=== PATIENT | male | born 1965 | race Caucasian/White ===

== ENCOUNTER 2023-09-23 17:18 | Inpatient (IN) | payer MEDICARE, MEDICAID ==
[~2023-09-23] VITALS: Ht 165.1 cm; Wt 88.4 kg
[2023-09-23] MEDS: normal saline 1000ML IV soln IVB ONE (18:08)
[2023-09-23] MEDS: LORazepam 2 mg/ml vial IV PRN (18:08)
[2023-09-23 21:46] LABS: INR 1.1 INR; PROTHROMBIN TIME 11.4 SECONDS (9.0-12.0)
[2023-09-23 21:49] LABS: ALBUMIN 3.3 G/DL (3.4-5.0); ALBUMIN/GLOBULIN RATIO 0.9 (1.1-1.5); ALKALINE PHOSPHATASE 95 IU/L (46-116); BILIRUBIN,TOTAL 0.8 MG/DL (0.1-1.0); BLOOD UREA NITROGEN 22 MG/DL (7-18); CALCIUM 7.3 MG/DL (8.5-10.1); CHLORIDE 106 MMOL/L (99-107); CREATININE 1.47 MG/DL (0.60-1.10); LIPASE 38 U/L (16-77); MAGNESIUM 1.7 MG/DL (1.5-2.4); TOTAL CARBON DIOXIDE 20.5 MMOL/L (24-32); eCRCL 51 ML/MIN; eGFR 50 ML/MIN
[2023-09-23 21:50] LABS: BASOPHILS # (AUTO) 0.1 X10'3 (0-0.2); BASOPHILS % (AUTO) 1.4 % (0-1); EOSINOPHILS # (AUTO) 0.1 X10'3 (0-0.9); HEMATOCRIT 37.7 % (42.0-52.0); HEMOGLOBIN 12.8 g/dl (14.0-17.9); LYMPHOCYTES # (AUTO) 1.9 X10'3 (1.1-4.8); LYMPHOCYTES % (AUTO) 32.2 % (21-51); MEAN CORPUSCULAR HEMOGLOBIN 29.5 PG (27.0-31.0); MEAN CORPUSCULAR VOLUME 86.8 FL (78-98); MEAN PLATELET VOLUME 6.4 FL (7.4-10.4); MONOCYTES # (AUTO) 0.9 X10'3 (0-0.9); MONOCYTES % (AUTO) 15.6 % (2-12); NEUTROPHILS # (AUTO) 2.9 X10'3 (1.8-7.7); NEUTROPHILS % (AUTO) 49.8 % (42-75); PLATELET COUNT 185 X10'3 (140-440); RED BLOOD COUNT 4.35 X10'6 (4.70-6.10); WHITE BLOOD COUNT 5.8 X10'3 (4.5-11.0)
[2023-09-23 22:48] LABS: ALANINE AMINOTRANSFERASE 60 U/L (12-78); GLUCOSE 90 MG/DL (70-104); PHOSPHORUS 3.6 MG/DL (2.3-4.5)
[2023-09-23 22:49] LABS: TOTAL CELLS COUNTED 100
[2023-09-23 22:50] LABS: PLATELET ESTIMATE NORMAL; TEAR DROP CELLS FEW
[2023-09-23 23:04] LABS: ASPARTATE AMINO TRANSFERASE 49 U/L (10-37)
[2023-09-23 23:24] LABS: ANION GAP 17 (8-16); POTASSIUM 3.9 MMOL/L (3.5-5.1); SODIUM 143 MMOL/L (135-145)
[2023-09-24] VITALS (13 sets, daily range): BP systolic 142–167; BP diastolic 95–116; PULSE 57–126; RESP 12–18; TEMP 97.2–98.8; O2SAT 93–98
[2023-09-24] MEDS ORDERED: glucagon, human recombinant 1mg kit SUBCUT PRN
[2023-09-24] MEDS ORDERED: magnesium 4gm in 100ml NS 100 ML IV PRN
[2023-09-24] MEDS ORDERED: magnesium hydroxide 30ml (MOM) UD suspension PO PRN
[2023-09-24] MEDS ORDERED: dextrose 50%-water 50ml dispensing syringe IV PRN ×3
[2023-09-24] MEDS ORDERED: mag hydrox/Alum hydrox/simeth 30ml oral suspension PO PRN
[2023-09-24] MEDS ORDERED: potassium Cl 20 mEq SR tablet PO PRN
[2023-09-24] MEDS ORDERED: acetaminophen 325mg tablet PO PRN
[2023-09-24] MEDS ORDERED: magnesium 2GM in 50ml NS 50 ML IV PRN
[2023-09-24] MEDS ORDERED: haloperidol lactate 5mg/ml inj IM PRN
[2023-09-24] MEDS ORDERED: potassium Cl 40MEQ/1/2NS 520ml 520 ML IV PRN
[2023-09-24] MEDS ORDERED: DEXTROSE 15 GM of carb/4 tabs (each vial/BOTTLE has 4 tablets) PO PRN ×2
[2023-09-24] MEDS: normal saline 1000ml 1,000 ML IV SCH (00:59)
[2023-09-24] MEDS ORDERED: CHLO10CA6 (02:22)
[2023-09-24] MEDS ORDERED: THIA100T70 PO (02:22)
[2023-09-24] MEDS ORDERED: CLON0.1T2 PO (02:22)
[2023-09-24] MEDS ORDERED: IPRA4AER INH (02:22)
[2023-09-24] MEDS ORDERED: FOLI1TAB27 PO (02:22)
[2023-09-24] MEDS: LORazepam 2 mg/ml vial IV PRN ×2 (03:49→20:24)
[2023-09-24 04:45] LABS: PROTHROMBIN TIME 11.1 SECONDS (9.0-12.0)
[2023-09-24 04:47] LABS: ALBUMIN 3.4 G/DL (3.4-5.0); ALBUMIN/GLOBULIN RATIO 0.9 (1.1-1.5); ALKALINE PHOSPHATASE 94 IU/L (46-116); AMYLASE 30 U/L (25-115); ANION GAP 21 (8-16); BILIRUBIN,TOTAL 1.1 MG/DL (0.1-1.0); BLOOD UREA NITROGEN 20 MG/DL (7-18); BUN/CREATININE RATIO 17.2 (10.0-20.0); CHLORIDE 104 MMOL/L (99-107); CREATININE 1.16 MG/DL (0.60-1.10); GLUCOSE 88 MG/DL (70-104); LIPASE 31 U/L (16-77); MAGNESIUM 1.5 MG/DL (1.5-2.4); SODIUM 142 MMOL/L (135-145); TOTAL CARBON DIOXIDE 17.4 MMOL/L (24-32); TOTAL PROTEIN 7.1 G/DL (6.4-8.2); eCRCL 64 ML/MIN; eGFR 65 ML/MIN
[2023-09-24 04:48] LABS: BASOPHILS # (AUTO) 0.1 X10'3 (0-0.2); BASOPHILS % (AUTO) 0.9 % (0-1); EOSINOPHILS # (AUTO) 0.1 X10'3 (0-0.9); EOSINOPHILS % (AUTO) 0.9 % (0-6); HEMATOCRIT 36.8 % (42.0-52.0); HEMOGLOBIN 12.8 g/dl (14.0-17.9); LYMPHOCYTES # (AUTO) 1.6 X10'3 (1.1-4.8); LYMPHOCYTES % (AUTO) 26.8 % (21-51); MEAN CORPUSCULAR HEMOGLOBIN 30.1 PG (27.0-31.0); MEAN CORPUSCULAR HGB CONC 34.9 g/dL (33.0-36.5); MEAN CORPUSCULAR VOLUME 86.2 FL (78-98); MEAN PLATELET VOLUME 6.5 FL (7.4-10.4); MONOCYTES # (AUTO) 0.4 X10'3 (0-0.9); MONOCYTES % (AUTO) 7.3 % (2-12); NEUTROPHILS # (AUTO) 3.9 X10'3 (1.8-7.7); NEUTROPHILS % (AUTO) 64.1 % (42-75); PLATELET COUNT 164 X10'3 (140-440); RED BLOOD COUNT 4.26 X10'6 (4.70-6.10); RED CELL DISTRIBUTION WIDTH 16.3 % (11.5-14.5)
[2023-09-24 05:06] LABS: PHOSPHORUS 2.5 MG/DL (2.3-4.5)
[2023-09-24 05:33] LABS: ALANINE AMINOTRANSFERASE 62 U/L (12-78); ASPARTATE AMINO TRANSFERASE 79 U/L (10-37)
[2023-09-24 05:36] LABS: POTASSIUM 3.8 MMOL/L (3.5-5.1)
[2023-09-24] MEDS: K and/or MAG REPLACEMENT MC SCH (08:00)
[2023-09-24] MEDS: pantoprazole 40mg Tablet.DR PO SCH (09:28)
[2023-09-24] MEDS: nicotine 21mg patch - 24 hr TD SCH (09:28)
[2023-09-24] MEDS: thiamine 100mg/ml 2ml inj. IV SCH (09:28)
[2023-09-24] MEDS: lisinopril 5mg tablet PO SCH (09:28)
[2023-09-24] MEDS: folic acid 1mg/0.2ml inj IV SCH (10:35)
[2023-09-24] MEDS: ipratropium/albuterol 3ml nebule NEB SCH (11:31)
[2023-09-24 21:08] LABS: URINE AMPHETAMINE SCREEN NEGATIVE (Neg); URINE BARBITUATE SCREEN NEGATIVE (Neg); URINE BENZODIAZEPINES SCREEN POSITIVE (Neg); URINE CANNABINOID SCREEN NEGATIVE (Neg); URINE COCAINE SCREEN NEGATIVE (Neg); URINE METHADONE SCREEN NEGATIVE (Neg); URINE OPIATE SCREEN NEGATIVE (Neg); URINE PHENCYCLIDINE SCREEN NEGATIVE (Neg)
[2023-09-25] VITALS (9 sets, daily range): BP systolic 152–153; BP diastolic 111–122; PULSE 90–102; RESP 15–21; TEMP 98.2; O2SAT 92–98
[2023-09-25 07:56] LABS: BASOPHILS % (AUTO) 0.4 % (0-1); EOSINOPHILS # (AUTO) 0.1 X10'3 (0-0.9); EOSINOPHILS % (AUTO) 1.5 % (0-6); HEMATOCRIT 30.8 % (42.0-52.0); HEMOGLOBIN 10.6 g/dl (14.0-17.9); LYMPHOCYTES # (AUTO) 1.3 X10'3 (1.1-4.8); LYMPHOCYTES % (AUTO) 30.1 % (21-51); MEAN CORPUSCULAR HEMOGLOBIN 29.4 PG (27.0-31.0); MEAN CORPUSCULAR HGB CONC 34.4 g/dL (33.0-36.5); MEAN CORPUSCULAR VOLUME 85.6 FL (78-98); MEAN PLATELET VOLUME 6.5 FL (7.4-10.4); MONOCYTES # (AUTO) 0.4 X10'3 (0-0.9); MONOCYTES % (AUTO) 8.4 % (2-12); NEUTROPHILS # (AUTO) 2.5 X10'3 (1.8-7.7); NEUTROPHILS % (AUTO) 59.6 % (42-75); PLATELET COUNT 112 X10'3 (140-440); RED CELL DISTRIBUTION WIDTH 15.6 % (11.5-14.5); WHITE BLOOD COUNT 4.2 X10'3 (4.5-11.0)
[2023-09-25 08:02] LABS: PROTHROMBIN TIME 10.8 SECONDS (9.0-12.0)
[2023-09-25 08:16] LABS: ALANINE AMINOTRANSFERASE 47 U/L (12-78); ALBUMIN 2.8 G/DL (3.4-5.0); ALBUMIN/GLOBULIN RATIO 0.8 (1.1-1.5); ALKALINE PHOSPHATASE 86 IU/L (46-116); AMYLASE 26 U/L (25-115); ANION GAP 11 (8-16); ASPARTATE AMINO TRANSFERASE 65 U/L (10-37); BILIRUBIN,TOTAL 1.2 MG/DL (0.1-1.0); BLOOD UREA NITROGEN 9 MG/DL (7-18); BUN/CREATININE RATIO 9.8 (10.0-20.0); CALCIUM 7.2 MG/DL (8.5-10.1); CHLORIDE 108 MMOL/L (99-107); CREATININE 0.92 MG/DL (0.60-1.10); GLUCOSE 77 MG/DL (70-104); MAGNESIUM 1.4 MG/DL (1.5-2.4); PHOSPHORUS 1.4 MG/DL (2.3-4.5); POTASSIUM 3.1 MMOL/L (3.5-5.1); SODIUM 141 MMOL/L (135-145); TOTAL CARBON DIOXIDE 22.2 MMOL/L (24-32); TOTAL PROTEIN 6.3 G/DL (6.4-8.2); eCRCL 78 ML/MIN; eGFR 85 ML/MIN
[2023-09-25 08:17] LABS: LIPASE 41 U/L (16-77)
[2023-09-25] MEDS: potassium Cl 20 mEq SR tablet PO PRN (08:54)
[2023-09-25] MEDS: magnesium Cl slow-release 64mg tablet PO PRN (08:55)
[2023-09-25] MEDS ORDERED: sodium phosphate inj. 30 MMOL in dextrose 5%-water 250 ML IV PRN (14:45)
[2023-09-25] MEDS ORDERED: sodium phosphate inj. 15 MMOL in dextrose 5%-water 250 ML IV PRN (14:45)
[2023-09-25] MEDS ORDERED: ipratropium/albuterol 3ml nebule NEB PRN (14:55)
[2023-09-25] MEDS: Neutra Phos packet PO PRN (15:03)
[2023-09-25] MEDS: ondansetron/PF 4mg/2ml inj IV PRN (15:03)
[2023-09-25] MEDS: LORazepam 2 mg/ml vial IV PRN (19:30)
[2023-09-25] MEDS: temazepam 15mg capsule PO ONE (23:48)
[2023-09-26] MEDS: chlordiazePOXIDE 25mg capsule PO STA (02:27)
[2023-09-26] MEDS: LORazepam 2 mg/ml vial IV PRN (03:04)
[2023-09-26] MEDS: morphine 2 MG/ML inj. syringe IV STA (03:09)
[2023-09-26] MEDS ORDERED: morphine 2 MG/ML inj. syringe IV STA (05:13)
[2023-09-26 06:00] VITALS: BP 174/45; PULSE 94; RESP 18; TEMP 99.1; O2SAT 98
[2023-09-26 07:20] VITALS: BP_SYST 94; PULSE 174
[2023-09-26 08:00] VITALS: RESP 18; O2SAT 98
[2023-09-26 08:44] LABS: BASOPHILS % (AUTO) 0.2 % (0-1); EOSINOPHILS # (AUTO) 0.2 X10'3 (0-0.9); EOSINOPHILS % (AUTO) 3.4 % (0-6); HEMATOCRIT 35.6 % (42.0-52.0); HEMOGLOBIN 11.8 g/dl (14.0-17.9); LYMPHOCYTES # (AUTO) 1.3 X10'3 (1.1-4.8); LYMPHOCYTES % (AUTO) 25.5 % (21-51); MEAN CORPUSCULAR HEMOGLOBIN 29.6 PG (27.0-31.0); MEAN CORPUSCULAR HGB CONC 33.2 g/dL (33.0-36.5); MEAN CORPUSCULAR VOLUME 89.2 FL (78-98); MEAN PLATELET VOLUME 6.9 FL (7.4-10.4); MONOCYTES # (AUTO) 0.3 X10'3 (0-0.9); MONOCYTES % (AUTO) 5.3 % (2-12); NEUTROPHILS # (AUTO) 3.4 X10'3 (1.8-7.7); NEUTROPHILS % (AUTO) 65.6 % (42-75); PLATELET COUNT 120 X10'3 (140-440); RED BLOOD COUNT 3.99 X10'6 (4.70-6.10); WHITE BLOOD COUNT 5.2 X10'3 (4.5-11.0)
[2023-09-26 09:07] LABS: PROTHROMBIN TIME 10.7 SECONDS (9.0-12.0)
[2023-09-26 09:10] LABS: ALANINE AMINOTRANSFERASE 66 U/L (12-78); ALBUMIN 3.4 G/DL (3.4-5.0); ALBUMIN/GLOBULIN RATIO 0.9 (1.1-1.5); ALKALINE PHOSPHATASE 101 IU/L (46-116); AMYLASE 34 U/L (25-115); ANION GAP 14 (8-16); ASPARTATE AMINO TRANSFERASE 107 U/L (10-37); BILIRUBIN,TOTAL 0.8 MG/DL (0.1-1.0); BLOOD UREA NITROGEN 9 MG/DL (7-18); BUN/CREATININE RATIO 8.7 (10.0-20.0); CALCIUM 8.2 MG/DL (8.5-10.1); CHLORIDE 107 MMOL/L (99-107); CREATININE 1.03 MG/DL (0.60-1.10); GLUCOSE 75 MG/DL (70-104); LIPASE 46 U/L (16-77); MAGNESIUM 1.6 MG/DL (1.5-2.4); POTASSIUM 3.5 MMOL/L (3.5-5.1); SODIUM 141 MMOL/L (135-145); TOTAL CARBON DIOXIDE 20.5 MMOL/L (24-32); TOTAL PROTEIN 7.2 G/DL (6.4-8.2); eCRCL 70 ML/MIN; eGFR 75 ML/MIN
[2023-09-28] MEDS ORDERED: folic acid 1mg tablet PO SCH (08:00)
[2023-09-28] MEDS ORDERED: thiamine 100mg tablet PO SCH (08:00)
== END 2023-09-26 08:54 | disposition left against medical advice (07) | DRG 640 ==
LOC: ER 17:18 → ED HOLD 23:55 → UNDOADMIN 23:55 → ED HOLD 09-24 00:36 → PCU 3S 09-24 07:12 → UNDODISIN 09-26 08:54
PROVIDERS: ADMIT Internal Medicine Critical Care Medicine; ATTEND Internal Medicine
DX: E86.0 Dehydration (principal); N17.0 Acute kidney failure with tubular necrosis; F10.239 Alcohol dependence with withdrawal, unspecified; E87.6 Hypokalemia; F10.229 Alcohol dependence with intoxication, unspecified; Z53.21 Procedure and treatment not carried out due to patient leaving prior to being seen by health care provider; F17.210 Nicotine dependence, cigarettes, uncomplicated; F41.9 Anxiety disorder, unspecified
CPT/HCPCS: 36415; 80053; 80305; 82150; 82948; 83690; 83735; 84100; 85007; 85025; 85610; 87081; 93005; 94640; 94760; 99291; 99292; G0378; J2060; J2270; J2405; J3411; J3490; J7030